=== PATIENT | female | born 1945 | race Caucasian/White ===

== ENCOUNTER → 2016-10-15 | Outpatient (CLI) | payer BC, OTHER | LOC: C.LABMFLN 08:17 | PROVIDERS: ATTEND Family Medicine | DX: R35.0 Frequency of micturition (principal) ==

== ENCOUNTER → 2016-11-12 | Outpatient (CLI) | payer OTHER ==
--- NOTE | 2016-11-20 08:55 | CODING QUERY MEDICAL NECESSITY ---
CQSUPPORTING DIAGNOSIS NEEDED A supporting diagnosis is required for the test/procedure performed on this patient in order for us to be reimbursed by the patient's insurance. Please provide a supporting diagnosis for the following test/procedure listed below next to the test name along with your signature. *If there is no additional diagnosis for this patient that would support the following test/procedure please document that below next to the test/procedure. Test(s)/Procedure(s) that require a supporting diagnosis: DOS 11/12/16 URINE CULTURE TESTS Provider Signature: Date: Thank you Teresita [facility] Once completed, please kindly fax back to [phone] For questions please call [phone]
== END | disposition home or self-care (01) ==
LOC: C.LABMFLN 08:00
PROVIDERS: ATTEND Family Medicine
DX: N88.9 Noninflammatory disorder of cervix uteri, unspecified (principal); N95.0 Postmenopausal bleeding; N39.0 Urinary tract infection, site not specified

== ENCOUNTER → 2017-04-19 | Outpatient (CLI) | payer OTHER ==
[2017-04-19 12:45] LABS: HEMATOCRIT 30.1 % (37-47); MEAN CORPUSCULAR HEMOGLOBIN 33.2 pg (25-34); PLATELET COUNT 265 K/uL (130-400); RED BLOOD COUNT 2.98 M/uL (4.2-5.4); WHITE BLOOD COUNT 4.33 K/uL (4.8-10.8)
[2017-04-19 13:06] LABS: BLOOD UREA NITROGEN 9 mg/dl (7-18); CARBON DIOXIDE 31 mmol/L (21-32); CHLORIDE 104 mmol/L (98-107); GLUCOSE 149 mg/dl (70-99); POTASSIUM 2.8 mmol/L (3.5-5.1); SODIUM 139 mmol/L (136-145)
[2017-04-19 13:45] LABS: BASO ABS # 0.15 K/uL (0-0.2); BASOPHIL % 3.5 %; COMPLETE YES; DOHLE BODIES 1+; LARGE GRANULAR LYMPHOCYTE % 20.9 %; LYMPHOCYTE % 13.9 %; MEAN CORPUSCULAR HGB CONC 32.9 g/dl (32-36); NEUTROPHILS % 48.6 %; TOXIC GRANULATION 1+
== END | disposition home or self-care (01) ==
LOC: C.LABMFLN 07:54
PROVIDERS: ATTEND Physician Assistant
DX: T36.8X4A Poisoning by other systemic antibiotics, undetermined, initial encounter (principal)

== ENCOUNTER → 2017-04-22 | Outpatient (CLI) | payer OTHER ==
[2017-04-22 12:59] LABS: BASO ABS # 0.04 K/uL (0-0.2); EOS % 5.4 %; HEMATOCRIT 26.9 % (37-47); IG% 0.2 %; LYMPH % 24.7 %; MEAN CELL VOLUME 102.7 fL (80-100); MEAN CORPUSCULAR HEMOGLOBIN 33.6 pg (25-34); MEAN CORPUSCULAR HGB CONC 32.7 g/dl (32-36); MEAN PLATELET VOLUME 10.2 fL (7.4-10.4); MONO % 11.1 %; NEUT % 57.6 %; PLATELET COUNT 274 K/uL (130-400); RED BLOOD COUNT 2.62 M/uL (4.2-5.4); WHITE BLOOD COUNT 4.05 K/uL (4.8-10.8)
[2017-04-22 13:31] LABS: COMPLETE YES; GIANT PLATELETS 1+
[2017-04-22 13:48] LABS: BLOOD UREA NITROGEN 8 mg/dl (7-18); BUN/CREATININE RATIO 6.8 (10-20); CALCIUM 8.8 mg/dl (8.5-10.1); CARBON DIOXIDE 27 mmol/L (21-32); CHLORIDE 105 mmol/L (98-107); CREATININE 1.13 mg/dl (0.60-1.20); GLUCOSE 103 mg/dl (70-99); POTASSIUM 3.4 mmol/L (3.5-5.1); SODIUM 138 mmol/L (136-145)
== END | disposition home or self-care (01) ==
LOC: C.LABMFLN 10:23
PROVIDERS: ATTEND Physician Assistant
DX: E87.6 Hypokalemia (principal); T36.8X4A Poisoning by other systemic antibiotics, undetermined, initial encounter

== ENCOUNTER → 2017-04-26 | Outpatient (CLI) | payer OTHER, BC ==
[2017-04-26 12:47] LABS: BLOOD UREA NITROGEN 10 mg/dl (7-18); BUN/CREATININE RATIO 7.3 (10-20); CALCIUM 9.4 mg/dl (8.5-10.1); CARBON DIOXIDE 29 mmol/L (21-32); CHLORIDE 104 mmol/L (98-107); CREATININE 1.32 mg/dl (0.60-1.20); GLUCOSE 137 mg/dl (70-99); SODIUM 138 mmol/L (136-145)
[2017-04-26 13:05] LABS: BASO % 1.1 %; BASO ABS # 0.04 K/uL (0-0.2); COMPLETE YES; EOS % 5.9 %; HEMATOCRIT 30.8 % (37-47); LYMPH % 28.9 %; LYMPH ABS # 1.03 K/uL (1.2-3.4); MEAN CELL VOLUME 103.7 fL (80-100); MEAN CORPUSCULAR HEMOGLOBIN 33.3 pg (25-34); MEAN CORPUSCULAR HGB CONC 32.1 g/dl (32-36); MEAN PLATELET VOLUME 10.4 fL (7.4-10.4); MONO % 8.7 %; NEUT % 55.4 %; PLATELET COUNT 289 K/uL (130-400); RED BLOOD COUNT 2.97 M/uL (4.2-5.4); WHITE BLOOD COUNT 3.57 K/uL (4.8-10.8)
== END | disposition home or self-care (01) ==
LOC: C.LABMFLN 07:53
PROVIDERS: ATTEND Physician Assistant
DX: T36.8X4A Poisoning by other systemic antibiotics, undetermined, initial encounter (principal); E87.6 Hypokalemia

== ENCOUNTER → 2017-05-10 | Outpatient (CLI) | payer OTHER, BC ==
[2017-05-10 18:19] LABS: BLOOD UREA NITROGEN 10 mg/dl (7-18); CALCIUM 8.7 mg/dl (8.5-10.1); CARBON DIOXIDE 29 mmol/L (21-32); CREATININE 1.26 mg/dl (0.60-1.20); GLUCOSE 110 mg/dl (70-99); POTASSIUM 3.7 mmol/L (3.5-5.1); SODIUM 137 mmol/L (136-145)
== END | disposition home or self-care (01) ==
LOC: C.LABMFLN 10:45
PROVIDERS: ATTEND Physician Assistant
DX: T36.8X4A Poisoning by other systemic antibiotics, undetermined, initial encounter (principal); E87.6 Hypokalemia